=== PATIENT | female | born 1950 | race Caucasian/White ===

== ENCOUNTER 2021-05-02 20:08 | Emergency (ER) | payer MEDICARE, OTHER ==
[~2021-05-02] VITALS: Ht 167.6 cm; Wt 88.5 kg
--- NOTE | 2021-05-03 07:17 | EKG ---
[facility] [address] [facility] [place], [place] [address] Signed Normal sinus rhythm Prolonged QT Abnormal ECG No previous ECGs available Confirmed by LEONARDO DILLON MD ([id number] on 05/03/2021 7:17:38 AM Electronically Signed By: LEONARDO DILLON MD 05/03/21 0717 PATIENT NAME: CHELSY MCCABE Electrocardiogram DATE OF : 48 PHYSICIAN: LEONARDO DILLON MD REPORT #: [id number] REPORT IS CONFIDENTIAL AND NOT TO BE RELEASED WITHOUT AUTHORIZATION
== END 2021-05-03 02:52 | disposition home or self-care (01) ==
LOC: ED 20:08
DX: R55 Syncope and collapse (principal); I10 Essential (primary) hypertension; E78.5 Hyperlipidemia, unspecified
CPT/HCPCS: 70450; 71260; 80053; 83735; 84484; 85025; 85379; 93005; 93010; 94640; 99284-25; Q9967

== ENCOUNTER 2023-04-17 16:45 | Emergency (ER) | payer MEDICARE, OTHER ==
[~2023-04-17] VITALS: Ht 167.6 cm; Wt 98.4 kg
[2023-04-17 16:56] LABS: BASOPHILS 0.7 % (0-2); EOSINOPHILS 2.4 % (0-6); HEMOGLOBIN 12.8 g/dL (12.0-18.0); LYMPHOCYTES 36.6 % (24-44); MCH 31.1 (27-36); MCHC 33.8 g/dl (30-36); MCV 91.9 fl (81-99); MONOCYTES 10.1 % (0-12); NEUTROPHILS 50.2 % (39-80); PLATELET COUNT 225 K/uL (140-440); RBC 4.13 M/ul (4.3-5.7)
[2023-04-17] MEDS ORDERED: ATORVASTATIN CA10 MG PO (16:57)
[2023-04-17] MEDS ORDERED: NITROFURANTOIN100 M1 PO (16:57)
[2023-04-17] MEDS ORDERED: LISINOPRIL40 MG PO (16:57)
[2023-04-17] MEDS ORDERED: HYDROCHLOROTHIA25 MG PO (16:58)
[2023-04-17] MEDS ORDERED: AMLODIPINE BES2.5 MG PO (16:58)
[2023-04-17] MEDS ORDERED: ATENOLOL50 MG PO (16:58)
[2023-04-17 17:13] LABS: ALBUMIN 3.1 g/dL (3.4-5.0); ALBUMIN/GLOBULIN RATIO 1.07 (1.1-2.4); BILIRUBIN, TOTAL 1.4 ng/dL (0.2-1.0); BUN/CREATININE RATIO 19.2 (6.0-28.6); CALCIUM 8.3 mg/dL (8.5-10.1); CREATININE, SERUM 1.25 mg/dL (0.55-1.02); MAGNESIUM 1.6 mg/dL (1.8-2.4)
[2023-04-17 19:41] VITALS: BP 167/96
--- NOTE | 2023-04-17 21:36 | EKG ---
[facility] [address] [facility] [place] [address] Signed Sinus rhythm with premature atrial complexes Prolonged QT Abnormal ECG When compared with ECG of 02-MAY-2021 21:16, premature atrial complexes are now present Confirmed by Harjit Wynn MD () on 04/17/2023 9:36:05 PM Electronically Signed By: HARJIT WYNN MD 04/17/23 2136 PATIENT NAME: CHELSY MCCABE Electrocardiogram DATE OF : 48 PHYSICIAN: HARJIT WYNN MD REPORT #: [id number] REPORT IS CONFIDENTIAL AND NOT TO BE RELEASED WITHOUT AUTHORIZATION
== END 2023-04-17 19:41 | disposition home or self-care (01) ==
LOC: ED 16:45
PROVIDERS: Emergency Medicine
DX: R55 Syncope and collapse (principal); I10 Essential (primary) hypertension; E78.5 Hyperlipidemia, unspecified; Z88.2 Allergy status to sulfonamides; Z79.899 Other long term (current) drug therapy
CPT/HCPCS: 36415; 71045; 80053; 83735; 84484; 85025; 93005; 93010; 99284-25; A9270